=== PATIENT | female | born 1980 | race Caucasian/White ===

== ENCOUNTER 2016-08-07 16:16 | Observation (INO) | payer OTHER ==
[~2016-08-07] VITALS: Ht 157.5 cm; Wt 82.7 kg
[2016-08-07 17:26] LABS: microscopic required? NO
[2016-08-07 17:34] LABS: UA SPECIFIC GRAVITY <=1.005 (1.005-1.035); urine erythrocyte NEGATIVE (NEGATIVE)
[2016-08-07 18:03] LABS: BASOPHIL % 0.6 % (0-2); PLATELET COUNT 207 x10^3mcL (130-400); RED CELL DISTRIBUTION WIDTH 12.9 % (11.5-14.5)
[2016-08-07 18:06] LABS: CALCIUM 8.8 mg/dL (8.5-10.1); CARBON DIOXIDE 26.4 mmol/L (21-32); CHLORIDE SERUM 107 mmol/L (98-107); CREATININE SERUM 0.7 mg/dL (0.6-1.0); GFR1 > 60 mL/min; GLUCOSE SERUM 91 mg/dL (74-106); POTASSIUM SERUM 4.2 mmol/L (3.5-5.1); SODIUM SERUM 143 mmol/L (136-145)
[2016-08-07 18:11] LABS: ALBUMIN 3.6 g/dL (3.4-5.0); ALKALINE PHOSPHATASE 166 U/L (46-116); ALT/SGPT 86 U/L (14-59); AST/SGOT 56 U/L (15-37); BILIRUBIN TOTAL 0.4 mg/dL (0.20-1.00); CHOLESTEROL 66 mg/dL (<200); CHOLESTEROL/HDL RATIO 2.3; HDL CHOLESTEROL 29 mg/dL (40-60); LIPASE 116 IU/L (73-393); TOTAL PROTEIN, SERUM 6.8 g/dL (6.4-8.2); TRIGLYCERIDES 47 mg/dL (<150)
[2016-08-07 18:24] LABS: T3 TOTAL 1.28 ng/mL
[2016-08-07 18:41] LABS: FREE T4 1.07 ng/dL (0.76-1.46); FREE THYROXINE INDEX 2.8 ug/dL (1.4-4.5); T4(THYROXINE) 8.6 ug/dL (4.7-13.3)
[2016-08-07] MEDS ORDERED: LASIX40 MG PO (23:10)
[2016-08-07] MEDS ORDERED: LACTULOSE10 GM/154 PO (23:11)
[2016-08-07] MEDS ORDERED: PROPRANOLOL HCL10 MG PO (23:12)
[2016-08-07] MEDS ORDERED: LEVOTHYROXINE0.1 M2 PO (23:12)
[2016-08-07] MEDS ORDERED: D3-50001 TAB PO (23:13)
[2016-08-07] MEDS ORDERED: VENLAFAXINE37.5 M2 PO (23:13)
[2016-08-07] MEDS ORDERED: VIS50 PO (23:14)
[2016-08-07] MEDS ORDERED: SIMETHICONE125 M1 (23:15)
[2016-08-08 00:49] VITALS: BP 122/67
[2016-08-08 00:56] VITALS: Ht 157.5 cm; Wt 82.7 kg
[2016-08-08 00:57] LABS: MAGNESIUM 1.7 mg/dL (1.8-2.4)
[2016-08-08 05:53] VITALS: BP 104/71
[2016-08-08 07:01] LABS: BASOPHIL % 0.4 % (0-2); PLATELET COUNT 174 x10^3mcL (130-400); RED CELL DISTRIBUTION WIDTH 13.1 % (11.5-14.5)
[2016-08-08 07:08] LABS: CALCIUM 7.9 mg/dL (8.5-10.1); CARBON DIOXIDE 25.9 mmol/L (21-32); CHLORIDE SERUM 111 mmol/L (98-107); CREATININE SERUM 0.7 mg/dL (0.6-1.0); GFR1 > 60 mL/min; GLUCOSE SERUM 89 mg/dL (74-106); POTASSIUM SERUM 4.3 mmol/L (3.5-5.1); SODIUM SERUM 144 mmol/L (136-145)
[2016-08-08 10:02] VITALS: BP 114/78
[2016-08-08 14:21] VITALS: BP 118/73
[2016-08-08 17:07] VITALS: BP 101/69
[2016-08-08 21:05] VITALS: BP 105/67
[2016-08-09 06:09] VITALS: BP 97/80
[2016-08-09 09:00] VITALS: BP 114/73
[2016-08-09 14:00] VITALS: BP 104/71
[2016-08-09 18:12] VITALS: BP 104/71
== END 2016-08-09 20:21 | disposition other institution (70) | DRG 303 ==
LOC: ED 16:16 → DU 23:03
PROVIDERS: Specialist; ADMIT Internal Medicine
DX: I25.119 Atherosclerotic heart disease of native coronary artery with unspecified angina pectoris (principal); B18.2 Chronic viral hepatitis C; E03.9 Hypothyroidism, unspecified; E78.5 Hyperlipidemia, unspecified; K74.60 Unspecified cirrhosis of liver; I73.9 Peripheral vascular disease, unspecified; Z87.891 Personal history of nicotine dependence; Z86.718 Personal history of other venous thrombosis and embolism
CPT/HCPCS: 36600; 83880; 84439; A9500; G0378; J1885; J2270; J2405; J2785; J3010; J3475; J7050; Q0092; Q0177; Q9967